=== PATIENT | female | born 1990 | race Caucasian/White ===

== ENCOUNTER 2021-02-19 17:28 | Day surgery (SDC) | payer OTHER ==
[2021-02-19 17:54] VITALS: BMI 31.6
[2021-02-19] MEDS ORDERED: hydrALAZINE 20 MG/ML VIAL SLOW IVP PRN (17:59)
[2021-02-19 18:40] LABS: Fetal Membranes Rupture No Membranes Rupture (No Rupture)
== END 2021-02-19 19:45 | disposition home or self-care (01) ==
LOC: CSHLD/OP 17:28
PROVIDERS: ATTEND Obstetrics & Gynecology
DX: O36.8130 Decreased fetal movements, third trimester, not applicable or unspecified (principal); O41.03X0 Oligohydramnios, third trimester, not applicable or unspecified; O09.293 Supervision of pregnancy with other poor reproductive or obstetric history, third trimester; Z3A.34 34 weeks gestation of pregnancy; Z86.16 Personal history of COVID-19
CPT/HCPCS: 76805; 84112